=== PATIENT | male | born 1935 | race Caucasian/White ===

== ENCOUNTER 2017-05-14 06:27 | Day surgery (SDC) | payer BC, MEDICARE ==
[2017-05-12 10:14] VITALS: BMI 27.3
[~2017-05-14 06:27] MED LIST: LACTATED RINGERS 1,000 ML IV SCH
[2017-05-14 07:10] VITALS: RESP 18; TEMP 97.8
[2017-05-14] MEDS ORDERED: LACTATED RINGERS 1,000 ML IV ONE ×2 (07:15)
[2017-05-14 07:24] LABS: Glucose,Whole Blood 188 mg/dL (75-99)
[2017-05-14] MEDS ORDERED: ePHEDrine SULFATE/0.9% NACL/PF 50 MG/5 ML SYRINGE IV ONE (07:40)
[2017-05-14] MEDS ORDERED: PROPOFOL 10 MG/ML 20 ML VIAL IV ONE (07:40)
--- NOTE | 2017-05-14 07:49 | P.GSHP ---
History of Present Illness H&P Date: 05/14/17 Chief Complaint: GI bleed This is an 82-year-old male who presents today for colonoscopy. He's had issues anal bleeding. Patient seen Juan found have some anal fissures. Past Medical History Past Medical History: Diabetes Mellitus, Hypertension, Osteoarthritis (OA) History of Any Multi-Drug Resistant Organisms: None Reported Past Surgical History: Joint Replacement Additional Past Surgical History / Comment(s): cervical fusion with limited neck movement, rt knee replacment, sinus surgery Past Anesthesia/Blood Transfusion Reactions: No Reported Reaction Additional Past Anesthesia/Blood Transfusion Reaction / Comment(s): limited neck movement Smoking Status: Former smoker - Past Family History Mother Family Medical History: No Reported History Medications and Allergies Home Medications Medication Instructions Recorded Confirmed Type Cholecalciferol [Vitamin D3] 1,000 unit PO DAILY 05/12/17 05/12/17 History Cyanocobalamin (Vitamin B-12) 1,000 mcg PO DAILY 05/12/17 05/12/17 History [Vitamin B-12] Nadolol [Corgard] 20 mg PO DAILY 05/12/17 05/12/17 History Valsartan/Hydrochlorothiazide 1 each PO DAILY 05/12/17 05/12/17 History [Valsartan-Hctz 320-25 mg Tab] glyBURIDE [Diabeta] 5 mg PO AC-BID 05/12/17 05/12/17 History metFORMIN HCL [Glucophage] 500 mg PO BID 05/12/17 05/12/17 History Allergies Allergy/AdvReac Type Severity Reaction Status Date / Time Penicillins Allergy Swelling Verified 05/12/17 09:56 Surgical - Exam Vital Signs Temp Pulse Resp BP Pulse Ox 97.8 F 52 L 18 189/90 96 05/14/17 07:08 05/14/17 07:08 05/14/17 07:08 05/14/17 07:08 05/14/17 07:08 - General well developed, well nourished, no distress - Eyes PERRL - ENT normal pinna - Neck no masses - Respiratory normal expansion - Cardiovascular Rhythm: regular - Abdomen Abdomen: soft, non tender Results - Labs Abnormal Lab Results - Last 24 Hours (Table) 05/14/17 Range/Units 07:15 POC Glucose (mg/dL) 188 H (75-99) mg/dL Assessment and Plan Assessment: GI bleed. We'll perform colonoscopy
--- NOTE | 2017-05-14 08:04 | P.OP ---
Date of Procedure: 05/14/17 Preoperative Diagnosis: GI bleed Postoperative Diagnosis: Anal fissure External hemorrhoids, internal hemorrhoids Diverticulosis Cecal polyp Procedure(s) Performed: Colonoscopy Anesthesia: MAC Surgeon: Kumar Bejarano Pathology: other (Cecal polyp) Condition: stable Disposition: PACU Description of Procedure: The patient's placed on the endoscopy table in the lateral position. He received IV sedation. Digital rectal exam performed which external and internal hemorrhoids. There is evidence of an anal fissure. The possible colonoscope was then placed patient anus passed rotator colon. The ileocecal valve was visualized. The cecum was examined and there was a small polyp seen this removed with the cold forcep. Scope was then withdrawn remainder the ascending colon, transverse colon appeared normal. In the descending and sigmoid colon there was diverticulosis. Scope was then brought back the rectum and this appeared normal. Scope was withdrawn for patient.
[2017-05-14 08:32] VITALS: BP 132/69; PULSE 47
== END 2017-05-14 08:46 | disposition home or self-care (01) ==
LOC: ORWHC2ENDO 06:27
PROVIDERS: ATTEND Surgery
DX: D12.0 Benign neoplasm of cecum (principal); K57.30 Diverticulosis of large intestine without perforation or abscess without bleeding; K60.2 Anal fissure, unspecified; K64.8 Other hemorrhoids; K64.4 Residual hemorrhoidal skin tags; M19.90 Unspecified osteoarthritis, unspecified site; I10 Essential (primary) hypertension; E11.9 Type 2 diabetes mellitus without complications; Z88.0 Allergy status to penicillin; Z96.651 Presence of right artificial knee joint; Z87.891 Personal history of nicotine dependence; Z79.84 Long term (current) use of oral hypoglycemic drugs; Z79.899 Other long term (current) drug therapy
CPT/HCPCS: 88305; 45380; J2704

== ENCOUNTER 2019-09-08 14:39 | Emergency (ER) | payer MEDICARE ==
[2019-09-08 14:54] VITALS: TEMP 97
[2019-09-08] MEDS ORDERED: SODIUM CHLORIDE 0.9% 1,000 ML IV STA (15:22)
--- NOTE | 2019-09-08 15:22 | ED ---
Fall HPI - General Chief Complaint: Fall Stated Complaint: Fall, Head Injury Time Seen by Provider: 09/08/19 15:00 Source: patient Mode of arrival: ambulatory - History of Present Illness Initial Comments: Patient is an 84-year-old male diabetic presenting to the emergency department with a chief complaint of head injury. Patient reports yesterday evening he was attempting to get out of his chair and ambulate when he tripped and hit his forehead on the chair. Denies any loss of consciousness but does report a hematoma. States there was small amounts of bleeding which has since resolved. He states he also caused a skin tear on his right upper extremity. States his tetanus is up-to-date. states they were concerned for potential secondary cause of the fall so they came to emergency department for an evaluation. Patient is not on any blood thinners. Reports the pain is minimal on the head. Denies any lightheadedness, dizziness, one-sided weakness or paresthesias. Denies any chest pain or shortness of breath or visual changes. - Related Data Home Medications Medication Instructions Recorded Confirmed Cholecalciferol [Vitamin D3] 1,000 unit PO DAILY 05/12/17 05/12/17 Cyanocobalamin (Vitamin B-12) 1,000 mcg PO DAILY 05/12/17 05/12/17 [Vitamin B-12] Nadolol [Corgard] 20 mg PO DAILY 05/12/17 05/12/17 Valsartan/Hydrochlorothiazide 1 each PO DAILY 05/12/17 05/12/17 [Valsartan-Hctz 320-25 mg Tab] glyBURIDE [Diabeta] 5 mg PO AC-BID 05/12/17 05/12/17 metFORMIN HCL [Glucophage] 500 mg PO BID 05/12/17 05/12/17 Allergies Allergy/AdvReac Type Severity Reaction Status Date / Time Penicillins Allergy Swelling Verified 09/08/19 14:54 Review of Systems ROS Statement: Those systems with pertinent positive or pertinent negative responses have been documented in the HPI. ROS Other: All systems not noted in ROS Statement are negative. Past Medical History Past Medical History: Diabetes Mellitus, Hypertension, Osteoarthritis (OA) History of Any Multi-Drug Resistant Organisms: None Reported Past Surgical History: Joint Replacement Additional Past Surgical History / Comment(s): cervical fusion with limited neck movement, rt knee replacment, sinus surgery Past Anesthesia/Blood Transfusion Reactions: No Reported Reaction Additional Past Anesthesia/Blood Transfusion Reaction / Comment(s): limited neck movement Past Psychological History: No Psychological Hx Reported Smoking Status: Former smoker - Past Family History Mother Family Medical History: No Reported History General Exam Limitations: no limitations General appearance: alert, in no apparent distress Head exam: Present: normocephalic. Absent: atraumatic (Small healing hematoma on the frontal region of his head.), normal inspection, other (Negative Peoples sign, negative hemotympanum, negative raccoon eyes.) Eye exam: Present: normal appearance, PERRL, EOMI Pupils: Present: normal accommodation ENT exam: Present: normal exam, normal oropharynx, mucous membranes moist Neck exam: Present: normal inspection, full ROM. Absent: tenderness Respiratory exam: Present: normal lung sounds bilaterally. Absent: respiratory distress, wheezes Cardiovascular Exam: Present: regular rate, normal rhythm, normal heart sounds GI/Abdominal exam: Present: soft. Absent: distended, tenderness, guarding Extremities exam: Present: normal inspection, full ROM, normal capillary refill, other (plus +2 ulnar and radial pulses bilateral.) Back exam: Present: normal inspection, full ROM. Absent: tenderness, CVA tenderness (R), CVA tenderness (L) Neurological exam: Present: alert, oriented X3 Psychiatric exam: Present: normal affect, normal mood Skin exam: Present: warm, dry, intact, normal color Course Vital Signs 09/08/19 09/08/19 09/08/19 14:52 15:45 16:00 Temperature 97 F L Pulse Rate 54 L 49 L 49 L Respiratory 16 19 17 Rate Blood Pressure 132/70 117/54 O2 Sat by Pulse 96 Oximetry 09/08/19 09/08/19 09/08/19 16:30 17:00 17:30 Temperature Pulse Rate 48 L 50 L Respiratory 20 17 Rate Blood Pressure 128/61 113/82 133/77 O2 Sat by Pulse Oximetry 09/08/19 19:00 Temperature 97 F L Pulse Rate 50 L Respiratory 17 Rate Blood Pressure 133/77 O2 Sat by Pulse 96 Oximetry Medical Decision Making - Medical Decision Making Patient is an 84-year-old male with type 2 diabetes presenting to emergency Department with a chief complaint of a fall. The fall occurred yesterday. Patient is a healing hematoma in the mid frontal region of the head. There was no loss of consciousness. Patient only complained that his legs gave out. Neurovascular is intact. Strength is 5/[address] of brain and C-spine shows no acute fractures or dislocations but does reveal moderate cerebral atrophy. Chest x-ray reveals minimal subsegmental atelectasis of the right lung. Patient does not have any shortness of breath or chest pain. Clear and equal sounds bilaterally to auscultation. CBC CMP unremarkable. UA does show +3 glucose and +1 ketones. Patient was given 1 L bolus fluids. He said to follow-up with his primary care within a week. Return parameters discussed the patient is understanding and agreeable. Case discussed with physician. - Lab Data Result diagrams: 09/08/19 15:30 09/08/19 15:30 Lab Results 09/08/19 09/08/19 09/08/19 Range/Units 15:30 15:30 15:30 WBC 9.3 (3.8-10.6) k/uL RBC 4.72 (4.30-5.90) m/uL Hgb 15.0 (13.0-17.5) gm/dL Hct 43.6 (39.0-53.0) % MCV 92.5 (80.0-100.0) fL MCH 31.9 (25.0-35.0) pg MCHC 34.4 (31.0-37.0) g/dL RDW 13.1 (11.5-15.5) % Plt Count 183 (150-450) k/uL Neutrophils % 77 % Lymphocytes % 15 % Monocytes % 5 % Eosinophils % 2 % Basophils % 0 % Neutrophils # 7.1 (1.3-7.7) k/uL Lymphocytes # 1.3 (1.0-4.8) k/uL Monocytes # 0.5 (0-1.0) k/uL Eosinophils # 0.2 (0-0.7) k/uL Basophils # 0.0 (0-0.2) k/uL PT 10.5 (9.0-12.0) sec INR 1.0 (<1.2) APTT 22.3 (22.0-30.0) sec Sodium 137 (137-145) mmol/L Potassium 4.1 (3.5-5.1) mmol/L Chloride 101 (98-107) mmol/L Carbon Dioxide 26 (22-30) mmol/L Anion Gap 10 mmol/L BUN 18 (9-20) mg/dL Creatinine 0.56 L (0.66-1.25) mg/dL Est GFR (CKD-EPI)AfAm >90 (>60 ml/min/1.73 sqM) Est GFR (CKD-EPI)NonAf >90 (>60 ml/min/1.73 sqM) Glucose 198 H (74-99) mg/dL Calcium 9.6 (8.4-10.2) mg/dL Total Bilirubin 3.0 H (0.2-1.3) mg/dL AST 28 (17-59) U/L ALT 23 (4-49) U/L Alkaline Phosphatase 69 (38-126) U/L Total Protein 6.6 (6.3-8.2) g/dL Albumin 3.9 (3.5-5.0) g/dL Urine Color Urine Appearance (Clear) Urine pH (5.0-8.0) Ur Specific [place] (1.001-1.035) Urine Protein (Negative) Urine Glucose (UA) (Negative) Urine Ketones (Negative) Urine Blood (Negative) Urine Nitrite (Negative) Urine Bilirubin (Negative) Urine Urobilinogen (<2.0) mg/dL Ur Leukocyte Esterase (Negative) 09/08/19 Range/Units 16:14 WBC (3.8-10.6) k/uL RBC (4.30-5.90) m/uL Hgb (13.0-17.5) gm/dL Hct (39.0-53.0) % MCV (80.0-100.0) fL MCH (25.0-35.0) pg MCHC (31.0-37.0) g/dL RDW (11.5-15.5) % Plt Count (150-450) k/uL Neutrophils % % Lymphocytes % % Monocytes % % Eosinophils % % Basophils % % Neutrophils # (1.3-7.7) k/uL Lymphocytes # (1.0-4.8) k/uL Monocytes # (0-1.0) k/uL Eosinophils # (0-0.7) k/uL Basophils # (0-0.2) k/uL PT (9.0-12.0) sec INR (<1.2) APTT (22.0-30.0) sec Sodium (137-145) mmol/L Potassium (3.5-5.1) mmol/L Chloride (98-107) mmol/L Carbon Dioxide (22-30) mmol/L Anion Gap mmol/L BUN (9-20) mg/dL Creatinine (0.66-1.25) mg/dL Est GFR (CKD-EPI)AfAm (>60 ml/min/1.73 sqM) Est GFR (CKD-EPI)NonAf (>60 ml/min/1.73 sqM) Glucose (74-99) mg/dL Calcium (8.4-10.2) mg/dL Total Bilirubin (0.2-1.3) mg/dL AST (17-59) U/L ALT (4-49) U/L Alkaline Phosphatase (38-126) U/L Total Protein (6.3-8.2) g/dL Albumin (3.5-5.0) g/dL Urine Color Yellow Urine Appearance Clear (Clear) Urine pH 5.5 (5.0-8.0) Ur Specific [place] 1.020 (1.001-1.035) Urine Protein Negative (Negative) Urine Glucose (UA) 3+ H (Negative) Urine Ketones 1+ H (Negative) Urine Blood Negative (Negative) Urine Nitrite Negative (Negative) Urine Bilirubin Negative (Negative) Urine Urobilinogen <2.0 (<2.0) mg/dL Ur Leukocyte Esterase Negative (Negative) - EKG Data EKG Comments: Sinus bradycardia Ventricular rate 48, OR 164, QRS 82, QTC 405. Disposition Clinical Impression: Fall, Head injury Disposition: HOME SELF-CARE Condition: Stable Instructions (If sedation given, give patient instructions): Fall Prevention for Older Adults (ED) Additional Instructions: Follow-up with her primary care. Return to emergency department if symptoms worsen. Is patient prescribed a controlled substance at d/c from ED?: No Referrals: Bryon Riddle MD [Primary Care Provider] - 1-2 days Time of Disposition: 17:57
[2019-09-08 16:01] LABS: Basophils % (A) 0 %; Eosinophils # (A) 0.2 k/uL (0-0.7); Eosinophils % (A) 2 %; HCT 43.6 % (39.0-53.0); Lymphocytes # (A) 1.3 k/uL (1.0-4.8); Lymphocytes % (A) 15 %; MCH 31.9 pg (25.0-35.0); MCHC 34.4 g/dL (31.0-37.0); MCV 92.5 fL (80.0-100.0); Mean Platelet Volume 8.2; Monocytes # (A) 0.5 k/uL (0-1.0); Monocytes % (A) 5 %; Neutrophils # (A) 7.1 k/uL (1.3-7.7); Neutrophils % (A) 77 %; Platelet Count 183 k/uL (150-450); RBC 4.72 m/uL (4.30-5.90); RDW 13.1 % (11.5-15.5); WBC 9.3 k/uL (3.8-10.6)
[2019-09-08 16:07] LABS: ALT 23 U/L (4-49); AST 28 U/L (17-59); African American GFR (CKD) >90 (>60 ml/min/1.73 sqM); Albumin 3.9 g/dL (3.5-5.0); Alkaline Phosphatase 69 U/L (38-126); Anion Gap 10 mmol/L; Blood Urea Nitrogen 18 mg/dL (9-20); Calcium 9.6 mg/dL (8.4-10.2); Carbon Dioxide 26 mmol/L (22-30); Chloride 101 mmol/L (98-107); Glucose 198 mg/dL (74-99); Non-African American GFR(CKD) >90 (>60 ml/min/1.73 sqM); Potassium 4.1 mmol/L (3.5-5.1); Sodium 137 mmol/L (137-145); Total Protein 6.6 g/dL (6.3-8.2)
[2019-09-08 16:14] LABS: Partial Thromboplastin Time 22.3 sec (22.0-30.0); Prothrombin Time 10.5 sec (9.0-12.0)
[2019-09-08 16:22] LABS: Appearance,Urine Clear (Clear); Bilirubin,Urine Negative (Negative); Blood,Urine Negative (Negative); Color,Urine Yellow; Glucose,Urine (UA) 3+ (Negative); Ketones,Urine 1+ (Negative); Leukocyte Esterase,Urine Negative (Negative); Nitrite,Urine Negative (Negative); PH, Urine 5.5 (5.0-8.0); Protein,Urine Negative (Negative); Urobilinogen,Urine <2.0 mg/dL (<2.0)
--- NOTE | 2019-09-08 17:17 | CT ---
EXAMINATION TYPE: CT brain yoan wolfe DATE OF EXAM: 09/08/2019 COMPARISON: None HISTORY: Fall last night. Frontal injury. Syncope. CT DLP: 1329.6 mGycm Automated exposure control for dose reduction was used. There is cerebral cortical atrophy. There is no mass effect nor midline shift. There is no sign of in tracranial hemorrhage. Calvarium is intact. Cervical vertebra have fairly normal alignment. There is disc space narrowing throughout the cervical spine with spurring. There is multilevel posterior fusio n surgery from C3 to C7. There is multilevel laminectomy. The skull base is intact. IMPRESSION: Moderate cerebral atrophy. No acute intracranial abnormality. Multilevel spine surgery. No fracture seen.
--- NOTE | 2019-09-08 17:19 | XR ---
EXAMINATION TYPE: XR chest 2V DATE OF EXAM: 09/08/2019 COMPARISON: NONE HISTORY: Fall. Pain. TECHNIQUE: 2 views FINDINGS: There is some minimal linear density right lung base. There is slight elevated right diaphr agm. Heart size is normal. There is no heart failure. Thoracic aorta is atheromatous. There is no pne umothorax. Thoracic spine is intact. IMPRESSION: Minimal subsegmental atelectasis right lung base. Normal heart.
[2019-09-08 17:54] VITALS: BP 133/77; PULSE 50; RESP 17
== END 2019-09-08 18:50 | disposition home or self-care (01) ==
LOC: EC 14:39
DX: S00.83XA Contusion of other part of head, initial encounter (principal); S41.111A Laceration without foreign body of right upper arm, initial encounter; J98.11 Atelectasis; E11.9 Type 2 diabetes mellitus without complications; I10 Essential (primary) hypertension; M19.90 Unspecified osteoarthritis, unspecified site; Z96.651 Presence of right artificial knee joint; Z98.1 Arthrodesis status; Z87.891 Personal history of nicotine dependence; Z79.84 Long term (current) use of oral hypoglycemic drugs; Z79.899 Other long term (current) drug therapy; Z88.0 Allergy status to penicillin; W01.190A Fall on same level from slipping, tripping and stumbling with subsequent striking against furniture, initial encounter
CPT/HCPCS: 36415; 70450; 71046; 72125; 80053; 81003; 85025; 85610; 85730; 93005; 96360; 99284

== ENCOUNTER 2020-11-30 12:21 | Emergency (ER) | payer MEDICARE ==
[2020-11-30] MEDS ORDERED: SODIUM CHLORIDE 0.9% 50 ML IVPB ONE (14:15)
[2020-11-30] MEDS ORDERED: CASIRIVIMAB/IMDEVIMAB (EUA) 1,200 MG in SODIUM CHLORIDE 0.9% 100 ML IVPB ONE (14:30)
[2020-11-30 14:36] VITALS: TEMP 98.2
[2020-11-30 15:02] VITALS: BP 120/69; PULSE 73; RESP 19
--- NOTE | 2020-11-30 15:46 | ED ---
General Adult HPI - General Chief complaint: Upper Respiratory Infection Stated complaint: covid exposure, cough Time Seen by Provider: 11/30/20 13:27 Source: patient, RN notes reviewed, old records reviewed Mode of arrival: ambulatory Limitations: no limitations - History of Present Illness Initial comments: I evaluated the patient when he was placed in a room. Patient is an 85-year-old male with past medical history remarkable for diabetes, hypertension, cluster arthritis, prior tobacco use quit 30+ years ago, who presents emergency Department complaining of a one-day history of congestion, mild nonproductive cough. Denies any shortness of breath or chest pain. Denies any abdominal pain, nausea, vomiting, diarrhea. He does have a known COVID-19 exposure, his son. Patient was vaccinated with the [employer] vaccine multiple months ago. He denies any weakness, lightheadedness, numbness. He otherwise has no acute complaints. He is concerned for his upper respiratory symptoms. It is uncertain if he has Covid. Patient presents for evaluation. - Related Data Home Medications Medication Instructions Recorded Confirmed Cholecalciferol [Vitamin D3] 1,000 unit PO DAILY 05/12/17 05/12/17 Cyanocobalamin (Vitamin B-12) 1,000 mcg PO DAILY 05/12/17 05/12/17 [Vitamin B-12] Valsartan/Hydrochlorothiazide 1 each PO DAILY 05/12/17 05/12/17 [Valsartan-Hctz 320-25 mg Tab] glyBURIDE [Diabeta] 5 mg PO AC-BID 05/12/17 05/12/17 metFORMIN HCL [Glucophage] 500 mg PO BID 05/12/17 05/12/17 nadoloL [Corgard] 20 mg PO DAILY 05/12/17 05/12/17 Previous Rx's Medication Instructions Recorded Acetaminophen Tab [Tylenol] 500 mg PO Q6H PRN 7 Days #28 tablet 11/30/20 Albuterol Inhaler [Ventolin Hfa 1 puff INHALATION RT-QID #8 gm 11/30/20 Inhaler] Allergies Allergy/AdvReac Type Severity Reaction Status Date / Time Penicillins Allergy Swelling Verified 11/30/20 12:33 Review of Systems ROS Statement: Those systems with pertinent positive or pertinent negative responses have been documented in the HPI. Review of Systems: CONST: Denies fever EYES: Denies blurry vision ENT: Endorses nasal congestion C/V: Denies Chest pain RESP: Denies shortness of breath GI: Denies abdominal pain : Denies dysuria SKIN: Denies rash. MSK: Denies joint pain. NEURO: Denies headache ROS Other: All systems not noted in ROS Statement are negative. Past Medical History Past Medical History: Diabetes Mellitus, Hypertension, Osteoarthritis (OA) History of Any Multi-Drug Resistant Organisms: None Reported Past Surgical History: Joint Replacement Additional Past Surgical History / Comment(s): cervical fusion with limited neck movement, rt knee replacment, sinus surgery Past Anesthesia/Blood Transfusion Reactions: No Reported Reaction Additional Past Anesthesia/Blood Transfusion Reaction / Comment(s): limited neck movement Past Psychological History: No Psychological Hx Reported Smoking Status: Current every day smoker Past Alcohol Use History: None Reported Past Drug Use History: None Reported - Past Family History Mother Family Medical History: No Reported History General Exam - General Exam Comments Initial Comments: General: Appears in no acute distress. HEAD: Normal with no signs of head trauma. EYES: PERRLA, EOMI, conjunctiva normal, no discharge. Pupils are 3 mm bilaterally. ENT: Hearing grossly intact, normal oropharynx. RESPIRATORY: Clear breath sounds bilaterally. No wheezes, rales, or rhonchi. No increased work of breathing. Patient saturating in the mid to high 90%'s on room air. C/V: Regular rate and rhythm. S1 and S2 auscultated, no edema, peripheral pulses 2+ and intact throughout ABD: Abd is soft, nontender, nondistended EXT: Normal range of motion, no obvious deformity SKIN: No rashes or lesions observed on exposed skin. NEURO: Alert and oriented 4. Limitations: no limitations Course Vital Signs 11/30/20 11/30/20 11/30/20 12:30 14:30 15:00 Temperature 98.9 F 98.2 F Pulse Rate 97 76 73 Respiratory 22 17 19 Rate Blood Pressure 150/86 143/73 120/69 O2 Sat by Pulse 94 L 95 93 L Oximetry Medical Decision Making - Medical Decision Making Based on the patient's presentation and physical exam, I do believe that the patient has an acute COVID-19 infection. Comfort some was obtained while he was in the waiting room and it is positive. I do not believe the patient requires any further laboratory studies or imaging at this time. Due to the patient's age, I did offer him multiple antibiotic therapy, which he was in agreement. We discussed the risks and benefits and he consented to treatment. Therefore patient will be given the multiple antibody therapy and monitored here in the emergency department for signs of ALLERGIC reaction afterwards. Patient will be discharged home afterwards with a Tylenol and albuterol prescription. Patient was in agreement this plan. Patient tolerated the therapy well. Following a period Of observation, I do believe it is safer to be discharged home at this time as he has no signs of A LLERGIC reaction. Vital signs are stable. Patient was in agreement this plan. Patient was discharged home in fair condition. We discussed quarantining for the next 10 days. I will provide the patient with a prescription for albuterol inhaler, acetaminophen. I instructed the patient to follow up with their PCP in the next 3 days. I explained that the patient should return to the emergency department if they experience any worsening symptoms. Strict return precautions were discussed with the patient. The patient expressed understanding of these instructions. I answered all questions that the patient had. The patient was discharged home in fair condition with their prescriptions and follow up information. - Lab Data Lab Results 11/30/20 Range/Units 12:36 Coronavirus (PCR) Detected A (Not Detectd) Disposition Clinical Impression: COVID-19 virus infection Disposition: HOME SELF-CARE Condition: Fair Instructions (If sedation given, give patient instructions): Coronavirus Disease 2019 (COVID-19) Prescriptions: Acetaminophen Tab [Tylenol] 500 mg PO Q6H PRN 7 Days #28 tablet PRN Reason: Pain Albuterol Inhaler [Ventolin Hfa Inhaler] 1 puff INHALATION RT-QID #8 gm Is patient prescribed a controlled substance at d/c from ED?: No Referrals: Bryon Riddle MD [Primary Care Provider] - 1-2 days
== END 2020-11-30 16:19 | disposition home or self-care (01) ==
LOC: EC 12:21
DX: U07.1 COVID-19 (principal); E11.9 Type 2 diabetes mellitus without complications; I10 Essential (primary) hypertension; M19.90 Unspecified osteoarthritis, unspecified site; F17.200 Nicotine dependence, unspecified, uncomplicated; Z79.84 Long term (current) use of oral hypoglycemic drugs; Z79.899 Other long term (current) drug therapy; Z88.0 Allergy status to penicillin
CPT/HCPCS: 87635; 96365; 99283; Q0243

== ENCOUNTER 2020-12-03 13:01 | Emergency (ER) | payer MEDICARE ==
[2020-12-03 13:51] VITALS: RESP 18; TEMP 97.9
--- NOTE | 2020-12-03 15:14 | ED ---
General Adult HPI - General Chief complaint: Upper Respiratory Infection Stated complaint: Covid+, weakness Time Seen by Provider: 12/03/20 14:34 Source: patient, RN notes reviewed Mode of arrival: ambulatory Limitations: no limitations - History of Present Illness Initial comments: 85-year-old male with a past medical history of diabetes mellitus, hypertension presents to the emergency room for a chief complaint of abdominal discomfort. Patient tested positive for coronavirus a few days ago. He did have the antibodies. Patient states the symptoms started a couple days before that. States he is here today because he was having abdominal discomfort, states he felt like it was rolling. His wanted him to be reevaluated. When he arrived however his pain had resolved. He denies any nausea vomiting diarrhea. States he is eating and drinking well. He has not had any fevers. He feels well at this time.Patient has no other complaints at this time including shortness of breath, chest pain, abdominal pain, nausea or vomiting, headache, or visual changes. - Related Data Home Medications Medication Instructions Recorded Confirmed Cholecalciferol [Vitamin D3] 1,000 unit PO DAILY 05/12/17 05/12/17 Cyanocobalamin (Vitamin B-12) 1,000 mcg PO DAILY 05/12/17 05/12/17 [Vitamin B-12] Valsartan/Hydrochlorothiazide 1 each PO DAILY 05/12/17 05/12/17 [Valsartan-Hctz 320-25 mg Tab] glyBURIDE [Diabeta] 5 mg PO AC-BID 05/12/17 05/12/17 metFORMIN HCL [Glucophage] 500 mg PO BID 05/12/17 05/12/17 nadoloL [Corgard] 20 mg PO DAILY 05/12/17 05/12/17 Previous Rx's Medication Instructions Recorded Acetaminophen Tab [Tylenol] 500 mg PO Q6H PRN 7 Days #28 tablet 11/30/20 Albuterol Inhaler [Ventolin Hfa 1 puff INHALATION RT-QID #8 gm 11/30/20 Inhaler] Allergies Allergy/AdvReac Type Severity Reaction Status Date / Time Penicillins Allergy Swelling Verified 12/03/20 13:51 Review of Systems ROS Statement: Those systems with pertinent positive or pertinent negative responses have been documented in the HPI. ROS Other: All systems not noted in ROS Statement are negative. Past Medical History Past Medical History: Diabetes Mellitus, Hypertension, Osteoarthritis (OA) History of Any Multi-Drug Resistant Organisms: None Reported Past Surgical History: Joint Replacement Additional Past Surgical History / Comment(s): cervical fusion with limited neck movement, rt knee replacment, sinus surgery Past Anesthesia/Blood Transfusion Reactions: No Reported Reaction Additional Past Anesthesia/Blood Transfusion Reaction / Comment(s): limited neck movement Past Psychological History: No Psychological Hx Reported Smoking Status: Current every day smoker Past Alcohol Use History: None Reported Past Drug Use History: None Reported - Past Family History Mother Family Medical History: No Reported History General Exam Limitations: no limitations General appearance: alert, in no apparent distress Head exam: Present: atraumatic Eye exam: Present: normal appearance, PERRL, EOMI. Absent: scleral icterus, conjunctival injection ENT exam: Present: normal exam, mucous membranes moist Neck exam: Present: normal inspection, full ROM. Absent: tenderness Respiratory exam: Present: normal lung sounds bilaterally. Absent: respiratory distress, wheezes Cardiovascular Exam: Present: regular rate, normal rhythm, normal heart sounds GI/Abdominal exam: Present: soft, normal bowel sounds. Absent: distended, tenderness (No abdominal tenderness whatsoever) Neurological exam: Present: alert Course Vital Signs 12/03/20 13:46 Temperature 97.9 F Pulse Rate 78 Respiratory 18 Rate Blood Pressure 129/84 O2 Sat by Pulse 96 Oximetry Medical Decision Making - Medical Decision Making Vitals are stable. Patient is 96% on room air. Physical exam revealed a nontender benign abdomen. Patient is refusing any workup. I recommended blood work and fluids however he states he has no pain at this time and prefers to go home. He did already have the antibody infusion.Patient has no other complaints at this time including shortness of breath, chest pain, abdominal pain, nausea or vomiting, headache, or visual changes. Disposition Clinical Impression: COVID-19 virus infection Disposition: HOME SELF-CARE Condition: Good Instructions (If sedation given, give patient instructions): Coronavirus Disease 2019 (COVID-19) Additional Instructions: Please follow-up with your doctor in one to 2 days. Return to the emergency room for any worsening symptoms. In the meantime continue to drink plenty of f luids. Is patient prescribed a controlled substance at d/c from ED?: No Referrals: Bryon Riddle MD [Primary Care Provider] - 1-2 days Time of Disposition: 15:14
[2020-12-03 15:23] VITALS: BP 133/91; PULSE 59
== END 2020-12-03 15:36 | disposition home or self-care (01) ==
LOC: EC 13:01
DX: U07.1 COVID-19 (principal); I10 Essential (primary) hypertension; E11.9 Type 2 diabetes mellitus without complications; M19.90 Unspecified osteoarthritis, unspecified site; F17.200 Nicotine dependence, unspecified, uncomplicated; Z88.0 Allergy status to penicillin; Z96.651 Presence of right artificial knee joint
CPT/HCPCS: 99283